=== PATIENT | female | born 1970 | race Caucasian/White ===

== ENCOUNTER → 2017-07-31 09:21 | Outpatient (CLI) | payer OTHER, SELFPAY ==
[2017-07-31 12:37] LABS: Anion Gap 10 (5-15); BUN 11 mg/dL (7-18); Calcium,Total 8.8 mg/dL (8.5-10.1); Chloride 111 mmol/L (98-107); Cholesterol 194 mg/dL (200); Creatinine, Serum 0.92 mg/dL (0.55-1.02); EST Glomerular Filtration Rate 71 mL/min (>60); Est Glom Filt Rate - Afr Amer 85 mL/min (>60); Glucose 78 mg/dL (74-106); High Density Lipoprotein 66 mg/dL; Potassium 3.7 mmol/L (3.5-5.1); Sodium Level 142 mmol/L (136-145); Triglycerides 72 mg/dL; Very Low Density Lipoprotein 14 mg/dL (5-40)
== END ==
PROVIDERS: Family Provider Family Medicine; PCP Family Medicine; Visit Provider Family Medicine
DX: Z00.00 Encounter for general adult medical examination without abnormal findings (principal)
CPT/HCPCS: 36415; 80048; 80061

== ENCOUNTER → 2017-12-25 13:34 | Outpatient (CLI) | payer OTHER, SELFPAY ==
--- NOTE | 2017-12-25 13:37 | RAD_ITS ---
STUDY: X-RAY - LEFT ANKLE REASON FOR EXAM: Female, 47 years old. Pain. TECHNIQUE: 3 view(s) of the ankle. COMPARISON: None. FINDINGS: Normal visualized distal tibia and fibula. Normal medial and lateral malleoli. Normal tibiotalar articulation and ankle mortise. Plantar spur. The visualized subtalar, talonavicular, calcaneocuboid and tarsal articulations are normal. The soft tissue structures are unremarkable. RAD/Ankle min 3 Views IMPRESSION: Plantar spur. Electronically Signed: Vinod Triana MD at 14:05 EDT Tel [phone], Service support ,
== END ==
PROVIDERS: Family Provider Family Medicine; PCP Family Medicine; Referring Provider Physician Assistant Surgical; Visit Provider Physician Assistant Surgical
DX: S96.912A Strain of unspecified muscle and tendon at ankle and foot level, left foot, initial encounter (principal); X58.XXXA Exposure to other specified factors, initial encounter; Y93.9 Activity, unspecified; Y92.9 Unspecified place or not applicable; Y99.9 Unspecified external cause status
CPT/HCPCS: 73610

== ENCOUNTER → 2018-08-06 09:17 | Outpatient (CLI) | payer OTHER, SELFPAY ==
[2018-08-06 12:55] LABS: ALB/GLOB Ratio 1.2 RATIO (0.9-2.4); AST(SGOT) 11 U/L (15-37); Alanine Aminotransfer ALT/SGPT 18 U/L (13-56); Albumin, Serum 3.7 g/dL (3.2-5.0); Alkaline Phosphatase 45 U/L (45-117); Anion Gap 9 (5-15); BUN 13 mg/dL (7-18); BUN/Creat Ratio 14.6 RATIO (10-20); Calcium,Total 8.7 mg/dL (8.5-10.1); Chloride 112 mmol/L (98-107); Cholesterol 178 mg/dL (200); Creatinine, Serum 0.89 mg/dL (0.55-1.02); EST Glomerular Filtration Rate 72 mL/min (>60); Est Glom Filt Rate - Afr Amer 88 mL/min (>60); Globulin 3.1 g/dL (2.2-4.2); Glucose 83 mg/dL (74-106); High Density Lipoprotein 69 mg/dL; Potassium 3.9 mmol/L (3.5-5.1); Protein, Total 6.8 g/dL (6.4-8.2); Sodium Level 143 mmol/L (136-145); Triglycerides 59 mg/dL; Very Low Density Lipoprotein 12 mg/dL (5-40)
== END ==
PROVIDERS: Family Provider Family Medicine; PCP Family Medicine; Visit Provider Family Medicine
DX: Z00.00 Encounter for general adult medical examination without abnormal findings (principal); G43.909 Migraine, unspecified, not intractable, without status migrainosus; I34.1 Nonrheumatic mitral (valve) prolapse
CPT/HCPCS: 36415; 80053; 80061

== ENCOUNTER 2023-06-29 17:17 | Emergency (ER) | payer OTHER, SELFPAY ==
[2023-06-29 17:20] VITALS: BP 156/62; PULSE 85; RESP 18; TEMP 35.7; O2SAT 100; BMI 35.4
[2023-06-29 19:18] VITALS: BP 140/78; PULSE 72; RESP 16; O2SAT 99
--- NOTE | 2023-06-29 19:24 | EX.ED.DYSGE1 ---
HPI History of Present Illness Chief Complaint: Nausea/Vomiting Narrative Narrative: 53-year-old female who denies significant past medical history presents with nausea and vomiting that started today. She relates history that she had a viral infection back in March, few months ago, and has been coughing ever since. She coughs on a daily basis and is nonproductive. Today, she did not really have a cough, but she became nauseated and then vomited up a small amount of blood/clots. She continued to vomit, and it was bright yellow. She became concerned more about the bright yellow emesis. She does not take any blood thinners. Only medications that she takes is flecainide for her heart, and rosuvastatin. She denies any chest pain, no shortness of breath, no real abdominal pain. No prior abdominal surgeries. She had a normal bowel movement today. [facility] Medical History Heart disease HISTORY OF PLATES IN ARM Home Medications flecainide 100 mg tablet 100 mg PO Q12H 30 days #60 tabs 12/25/17 [History Last Taken Unknown] benzonatate 100 mg capsule 100 mg PO BID PRN cough #20 caps 06/29/23 [Rx Last Taken Unknown] cetirizine 10 mg tablet (24Hour Allergy) 10 mg PO DAILY PRN allergy symptoms 06/29/23 [History Last Taken Unknown] epinephrine 0.3 mg/0.3 mL injection, auto-injector 0.3 ml IM 06/29/23 [History Last Taken Unknown] omeprazole 20 mg capsule,delayed release 20 mg PO DAILY #30 CAPSULES 06/29/23 [Rx Last Taken Unknown] rosuvastatin 5 mg tablet 5 mg PO DAILY 06/29/23 [History Last Taken Unknown] trazodone 100 mg tablet 100 mg PO QHS insomnia 06/29/23 [History Last Taken Unknown] Allergy/AdvReac Type Severity Reaction Status Date / Time neomycin Allergy Mild SWELLING/RA Verified 06/29/23 17:20 SH adhesive Allergy Other Verified 06/29/23 17:20 bee venom protein (honey bee) Allergy Swelling Verified 06/29/23 17:20 Family History Other Bladder cancer Kidney disease Lung cancer Lupus Surgical History History of thumb surgery History of tonsillectomy Social History Smoking Status: Never smoker alcohol intake: never ROS ROS ED ROS Narrative Constitutional: No fever, no chills. HEENT: No sore throat. No neck pain. No loss of vision. No rhinorrhea. Cardiovascular: No chest pain. No palpitations. No pedal edema. Respiratory: Chronic cough, no shortness of breath. Abdominal: No abdominal pain. Positive nausea and vomiting, initial vomit was blood clots, then bilious. Genitourinary: No dysuria. No hematuria. Musculoskeletal: No myalgias. No arthralgias. Neurologic: No headaches. No dizziness. No lightheadedness. Skin: No rash. No change in color. Psychiatric: No depression. No anxiety. EXAM Physical Exam Narrative Exam Narrative: Afebrile. Vital signs noted. HEENT: Normocephalic. Atraumatic. PERRL, EOMI. Neck soft and supple. No point tenderness or step off. No subconjunctival pallor. Cardiovascular: Regular rate and rhythm. No murmurs, rubs, or gallops appreciated. Respiratory: No tachypnea. Lungs clear to auscultation bilaterally. Gastrointestinal: Abdomen soft, nontender, with normoactive bowel sounds. No rebound or guarding. Negative Argueta sign. Neurological: Awake. Alert. Nonfocal, nonlateralizing. Skin: No rash. Normal color. No pallor. Musculoskeletal: No pedal edema. Full range of motion extremities. Const Vital Signs: 06/29/23 17:20 06/29/23 19:13 06/29/23 19:18 Temperature 96.3 F L Temperature Source Temporal Pulse Rate 85 72 Respiratory Rate 18 16 Respiratory Effort Normal Respiratory Depth Normal Respiratory Pattern Normal Blood Pressure 156/62 H 140/78 H Blood Pressure Mean 93 98 Pulse Ox 100 99 Oxygen Delivery Method Room Air Room Air Room Air MDM MDM MDM Narrative Medical decision making narrative: In the differential diagnosis would be Dayanna-Thompson tear from coughing, bilious vomiting from gastritis, pancreatitis, and I have low suspicion for gallbladder pathology as she has no tenderness in the right upper quadrant. Also the differential diagnosis would be bowel obstruction, but she does not have prior surgeries to the abdomen and the history and physical does not support this. Baseline laboratories will be checked. Clinically I do not feel that she is anemic requiring transfusion. I will check a CBC, CMP, and lipase, and obtain x-rays to help rule out obstruction. Given her chronic cough, this will include 1 view chest x-ray as well. I reviewed her laboratory work and she has a normal white count of 7.7, hemoglobin normal at 14.3, hematocrit 42.2, platelet count normal at 274. BUN is slightly elevated at 21 with a creatinine of 1.07. She was bolused normal saline. Glucose appropriately elevated at 79, anion gap normal at 8. Lipase is normal at 18 so I do think she has an acute pancreatitis. She had more bilious vomiting so I think that any upper GI bleeding has stopped. X-rays of the abdomen were obtained as well as 1 view chest x-ray and interpreted by myself independently. There is no evidence of obstruction. There is a nonobstructive pattern, and moderate stool noted. I reviewed the radiology report which confirms my independent interpretation. She may have more of an esophagitis or gastritis versus ulcer. She does state that she wakes up with a sour taste in her mouth and thinks that her cough may be secondary to GERD. I wrote her prescription for omeprazole. She states that Tessaltiburcio Fonseca have been working for cough as well, and requested a prescription so I wrote 1 for 20 tablets but told her that she should take care of her GERD and probably see gastroenterology as well in the event that she requires upper endoscopy. At this point in time, I have low suspicion for bleeding ulcer. I feel she can be discharged safely home with follow-up. Return instructions to the emergency department were reviewed. Disposition is discharged home in stable condition. History & Record Review Discussion w/independent historian: Patient and Family (Spouse) Additional record(s) reviewed:: Prior outpatient record (Neurology out patient, noncontributory to current chief complaint.) Lab Data Attestation: I reviewed the patient's lab results. Labs: Laboratory Results - last 24 hr 06/29/23 20:15 WBC 7.7 RBC 4.47 Hgb 14.3 Hct 42.2 MCV 94.4 MCH 32.0 MCHC 33.9 RDW Std Deviation 41.6 RDW Coeff of Rob 11.9 Plt Count 274 MPV 10.3 Immature Gran % (Auto) 0.300 Neut % (Auto) 59.1 Lymph % (Auto) 32.9 [place] % (Auto) 6.4 Eos % (Auto) 0.8 Baso % (Auto) 0.5 Absolute Neuts (auto) 4.6 Absolute Lymphs (auto) 2.53 Nucleated RBC % 0 Sodium 138 Potassium 3.8 Chloride 105 Carbon Dioxide 25.0 Anion Gap 8 BUN 21 H Creatinine 1.07 H Estim Creat Clear Calc 74.01 Est GFR (MDRD) Af Amer 70 Est GFR (MDRD) Non-Af 58 L BUN/Creatinine Ratio 19.6 Glucose 79 Calcium 9.9 Total Bilirubin 0.40 AST 16 ALT 19 Alkaline Phosphatase 65 Total Protein 7.9 Albumin 4.5 Globulin 3.4 Albumin/Globulin Ratio 1.3 Lipase 18 Radiography Diagnostic Testing: Clinical Impression(s) from Imaging Studies Acute Abdomen Series 06/29/23 20:21 IMPRESSION: Normal x-ray examination of the chest, abdomen, and pelvis. Electronically Signed: Spike Hope MD at 21:07 EDT , Discharge Plan Triage Chief Complaint: Nausea/Vomiting Other Complaint: Cough ED Provider: Steve Marquez Dx/Rx/DC Orders Clinical Impression: Cough, Gastroesophageal reflux disease, Vomiting Instructions: ED GERD (Adult), ED Vomiting (Adult) Prescriptions: New omeprazole 20 mg capsule,delayed release(DR/EC) 20 mg PO DAILY Qty: 30 0RF benzonatate 100 mg capsule 100 mg PO BID PRN (Reason: cough) Qty: 20 0RF No Action flecainide 100 mg tablet 100 mg PO Q12H 30 Days Qty: 60 Patient Comments: TAKE 1 TABLET BY MOUTH EVERY 12 HOURS cetirizine [24Hour Allergy] 10 mg tablet 10 mg PO DAILY PRN (Reason: allergy symptoms) trazodone 100 mg tablet 100 mg PO QHS epinephrine 0.3 mg/0.3 mL auto-injector 0.3 ml IM Patient Comments: PLEASE SEE ATTACHED FOR DETAILED DIRECTIONS rosuvastatin 5 mg tablet 5 mg PO DAILY Primary Care Provider: Nelsy Forman Referrals: Lizzy Cruz MD [Med Staff - Renal Dialysis Rn] - 3-5 Days if not improving Abril,DO Steven [Med Staff - Active Staff] - As soon as possible Disposition Disposition: Home, Self Care
[2023-06-29] MEDS: 0.9% Normal Saline (1000mL) 1,000 ML 1000 ML IV (20:14)
[2023-06-29] MEDS: Ondansetron 4 MG/2 ML Vial IV (20:14)
--- NOTE | 2023-06-29 20:21 | RAD_ITS ---
STUDY: X-RAY - ACUTE ABDOMINAL SERIES REASON FOR EXAM: Female, 53 years old. Pain TECHNIQUE: Single view of the chest. Supine, and erect view(s) of the abdomen were obtained. COMPARISON: None. FINDINGS: The lungs are clear and expanded. Slightly elevated right hemidiaphragm. Normal size heart. Normal mediastinum and socorro. Normal visualized pulmonary arteries. Normal visualized aortic arch and descending thoracic aorta. There is a non-specific bowel gas pattern. The soft tissue structures of the abdomen and pelvis are unremarkable. Normal visualized osseous structures. Intrauterine device within the pelvis. RAD/Acute Abdomen Inc Chest IMPRESSION: Normal x-ray examination of the chest, abdomen, and pelvis. Electronically Signed: Spike Hope MD at 21:07 EDT ,
[2023-06-29 20:24] LABS: Absolute Lymphocyte Count 2.53 X10^3/uL (0.83-4.51); Absolute Neutrophil Count 4.6 X10^3/uL (2.0-7.7); Basophil# 0.04 X10^3/uL; Basophil% 0.5 % (0-1); Eosinophil# 0.06 X10^3/uL; Eosinophils% 0.8 % (0-5); Hematocrit 42.2 % (37-47); Hemoglobin 14.3 g/dL (12.0-15.0); Lymphocyte # 2.53 X10^3/ul (0.83-4.51); Lymphocyte % 32.9 % (19-41); Mean Corp Hgb Conc 33.9 g/dL (32-36); Mean Corpuscular Volume 94.4 fL (81-99); Mean Platelet Vol. 10.3 fl (6.2-12.0); Monocyte# 0.49 X10^3/uL; Monocyte% 6.4 % (0-10); NRBC Flagged by Analyzer 0 % (0-5); Neutrophil # 4.56 X10^3/uL (2.7-7.7); Neutrophil % 59.1 % (47-70); Platelet Count 274 K/mm3 (150-450); RBC Distribution Width CV 11.9 % (11.6-14.6); RBC Distribution Width SD 41.6 fl (35.1-43.9); Red Blood Count 4.47 M/mm3 (4.2-5.4); White Blood Count 7.7 K/mm3 (4.4-11.0)
[2023-06-29 20:59] LABS: ALB/GLOB Ratio 1.3 RATIO (0.9-2.4); AST(SGOT) 16 U/L (15-37); Alanine Aminotransfer ALT/SGPT 19 U/L (13-56); Albumin, Serum 4.5 g/dL (3.2-5.0); Alkaline Phosphatase 65 U/L (45-117); Anion Gap 8 (5-15); BUN 21 mg/dL (7-18); BUN/Creat Ratio 19.6 RATIO (10-20); Calcium,Total 9.9 mg/dL (8.5-10.1); Chloride 105 mmol/L (98-107); Creatinine, Serum 1.07 mg/dL (0.55-1.02); EST Glomerular Filtration Rate 58 mL/min (>60); Est Glom Filt Rate - Afr Amer 70 mL/min (>60); Estimated Creatinine Clearance 74.01 ml/min; Globulin 3.4 g/dL (2.2-4.2); Glucose 79 mg/dL (74-106); Lipase 18 U/L (13-75); Potassium 3.8 mmol/L (3.5-5.1); Protein, Total 7.9 g/dL (6.4-8.2); Sodium Level 138 mmol/L (136-145)
[2023-06-29 21:00] VITALS: BP 127/89; PULSE 78; RESP 16; O2SAT 99
[2023-06-29 21:49] VITALS: BP 129/84; PULSE 75; RESP 16; TEMP 36.9; O2SAT 99
== END 2023-06-29 21:50 | disposition home or self-care (01) ==
PROVIDERS: Emergency Provider Emergency Medicine; PCP Internal Medicine; Visit Provider Emergency Medicine
DX: R11.2 Nausea with vomiting, unspecified (principal); K21.9 Gastro-esophageal reflux disease without esophagitis; R05.3 Chronic cough
CPT/HCPCS: 74022; 80053; 83690; 85025; 96361; 96374; 99283; J7030; A4216; J2405

== ENCOUNTER 2024-06-10 05:16 | Day surgery (SDC) | payer OTHER, SELFPAY ==
--- NOTE | 2024-06-05 14:14 | PAT.ANESEVAL ---
Pre-Assessment Diagnosis/Proposed Procedure Planned Operative Procedure(s): EGD, COLONOSCOPY Anesthesia History Anesthesia History - sheep sticker: Anesthesia History - sheep sticker Hx Hospitalization No 06/05/24 08:23 Any Problems With Anesthesia No 06/05/24 08:23 Cholinesterase deficiency No 06/05/24 08:23 You/Your Family Experience No 06/05/24 08:23 fever (hyperthermia) with Relationship Recent Exposure to Contagious Disease Does patient have nerve No 06/05/24 08:23 stimulator Patient instructed to have device shut off --Does patient have Pacemaker or ICD? When Was Last Pacemaker Check QUESTION #4 FULL TEXT: You/Your Family Experience fever (hyperthermia) with Anesthesia Last Oral Intake Last Oral intake: Last Oral Intake NPO since Meds taken in AM with sips of water? Meds patient instructed to take am of surgery PONV PONV - sheep sticker: PONV - sheep sticker Female Yes 06/05/24 08:23 HX of Motion Sickness No 06/05/24 08:23 HX of N/V After Surgery No 06/05/24 08:23 Non-Smoker Yes 06/05/24 08:23 Duration of Surgery greater No 06/05/24 08:23 than 60 minutes Number of Risk Factors 2 06/05/24 08:23 PONV Score Moderate Risk 06/05/24 08:23 Height & Weight Height & Weight: Anesthesia: Height & Weight Height 5 ft 6 in 03/26/24 16:05 Respiratory Assessment Respiratory Assessment - sheep sticker: Respiratory Tract Infection Hx - sheep sticker Hx Respiratory Tract Infection No 06/05/24 08:23 STOP Sleep Apnea STOP Sleep Apnea - sheep sticker: STOP Sleep Apnea - sheep sticker Hx Hypertension No 06/05/24 08:23 Hx Sleep Apnea No 06/05/24 08:23 CPAP BIPAP Do you snore loudly (louder No 06/05/24 08:23 than talking or can be heard Do you often feel tired/ No 06/05/24 08:23 fatigued/ sleepy during daytime? Has anyone observed you stop No 06/05/24 08:23 breathing during sleep? STOP Results Negative 06/05/24 08:23 QUESTION #5 FULL TEXT : Do you snore loudly (louder than talking or can be heard through closed doors)? Tobacco Use History Tobacco Use History - sheep sticker: Tobacco Use History - sheep sticker Tobacco Use Smoking Status Never smoker 06/05/24 08:23 Hx Tobacco Use No 06/05/24 08:23 Years Smoking Packs Smoked per Day Smoking Cessation Date was within the last 15 years Hx Smoking Cessation Date Hx Smoking Cessation Counseling Hematologic Medial History Hematologic Hx - sheep sticker: Hematologic Medical Hx - paying teller Hx of Blood Transfusion No 06/05/24 08:23 Hx of Transfusion in last 3 No 06/05/24 08:23 Months Date of Last Transfusion (if within last 3 months) Ever experience any problems No 06/05/24 08:23 with transfusion(s)? Specify any problems Hx of Preganancy in last 3 No 06/05/24 08:23 Months Nurse Filling Out Transfusion [facility] 06/05/24 08:23 & Questions: Date: 06/05/24 06/05/24 08:23 Time: 08:06/05/24 08:23 Patient unable to answer at this time (ie. confused, unrespo /Reproduction History /Reproductive History - sheep sticker: /Reproductive Hx- sheep sticker Hx Now No 06/05/24 08:23 Gestational Age (in weeks): EDC: Hx Hx Para Hx Section SAB No 06/05/24 08:23 [facility]LY [facility] Medical History (Updated 06/05/24 @ 08:32 by Sonja Zafar) Postmenopausal Wears glasses High cholesterol Difficulty swallowing Gastric reflux Non-smoker Chronic cough History of echocardiogram Cardiology follow-up encounter Hives Hypercholesterolemia Mitral valve prolapse Aortic regurgitation Headache, migraine UTI (urinary tract infection) Bone fracture Atrial fibrillation Seasonal allergies HISTORY OF PLATES IN ARM Heart disease Home Medications ?Medication ?Instructions ?Recorded ?Last Taken ?Type flecainide 100 mg tablet 100 mg PO Q12H 30 days #60 tabs 12/25/17 Unknown History epinephrine 0.3 mg/0.3 mL 0.3 ml IM .once 06/29/23 Unknown History injection, auto-injector rosuvastatin 5 mg tablet 5 mg PO DAILY 06/29/23 Unknown History trazodone 100 mg tablet 100 mg PO QHS insomnia 06/29/23 Unknown History cetirizine 10 mg tablet (24Hour 10 mg PO DAILY allergy symptoms 04/08/24 Unknown History Allergy) omeprazole 40 mg capsule,delayed 40 mg PO BID 04/08/24 Unknown History release metoprolol tartrate 25 mg tablet 12.5 mg PO QHS 06/05/24 Unknown History Allergy/AdvReac Type Severity Reaction Status Date / Time neomycin Allergy Mild SWELLING/RA Verified 06/05/24 08:19 SH adhesive Allergy Other Verified 06/05/24 08:19 bee venom protein (honey bee) Allergy Swelling Verified 06/05/24 08:19 Family History (Updated 04/08/24 @ 15:42 by Mitzy Perry) Sister Thyroid disorder Mother Lupus nephritis Kidney disease Father Lung cancer Other Bladder cancer Lupus Surgical History (Updated 06/05/24 @ 08:28 by Sonja Zafar) History of surgery on arm History of thumb surgery History of tonsillectomy Social History (Updated 04/08/24 @ 15:33 by Mitzy Perry) Smoking Status: Never smoker alcohol intake: current alcohol intake frequency: holidays/special occasions only substance use type: does not use what type of physical activity do you participate in: aerobics frequency: 1-2 times per week Audit: Pertinent Findings Pertinent Findings EKG Perinent findings: May 02, 2024. Sinus rhythm. Intraventricular conduction delay. Echo (EF%) pertinent findings: May 12, 2024. Mild aortic insufficiency. No aortic stenosis. Ejection fraction 55 to 60%. Right ventricular systolic pressure is 36 mmHg. Consult pertinent findings: May 02, 2024. 1. Aortic insufficiency?check echo. (See above) 2. Palpitations-check EKG. (Above) Recommendation Anesthesia Recommendation Anesthesia recommendation: OPTIMIZED for anesthesia
[2024-06-10] VITALS (8 sets, daily range): BP systolic 98–137; BP diastolic 63–67; PULSE 77–85; RESP 14–18; TEMP 36.6–37.4; O2SAT 88–98; BMI 39.0
--- NOTE | 2024-06-10 06:16 | PCM.PRE.AN2 ---
ASA Classification* ASA Classification ASA Classification: 2 Assessment & Plan Anesthesia* Anesthesia Assessment Anesthesia Assessment: Discussed sedation and/or anesthesia options, risks, benefits, and alternatives with patient/parents/legal guardian/POA. Questions invited. The patient/parents/legal guardian/POA seems to understand and agrees to proceed with anesthesia plan. Reviewed the physical assessment, medical history, allergy history and patient home medications list prior to surgery/procedure/anesthetic and documented any changes. Performed airway and anesthesia risk assessments. Anesthesia Type Anesthesia Type: MAC History Source History Obtained from:: Patient and Chart Anesthesia Focused Assessment* Temperature: 99.4 F Pulse Rate: 81 Blood Pressure: 137/65 Respiratory Rate: 18 Pulse Ox: 98 Oxygen Delivery Method: Room Air Airway Assessment Mouth opens: >3 cm Mallampati Score: II Teeth Condition: Caps/Crowns (Patient has a couple of caps left upper molars. They are tight.) Neck Range of motion (ROM): Full ROM Focused Labs Anesthesia Preop lab: CBC WBC 7.7 K/mm3 (4.4-11.0) 06/29/23 20:15 06/29/23 RBC 4.47 M/mm3 (4.2-5.4) 06/29/23 20:15 06/29/23 Hgb 14.3 g/dL (12.0-15.0) 06/29/23 20:15 06/29/23 Hct 42.2 % (37-47) 06/29/23 20:15 06/29/23 Plt Count 274 K/mm3 (150-450) 06/29/23 20:15 06/29/23 CHEMISTRY Potassium 3.8 mmol/L (3.5-5.1) 06/29/23 20:15 06/29/23 Sodium 138 mmol/L (136-145) 06/29/23 20:15 06/29/23 Magnesium 1.9 mg/dL (1.8-2.4) 11/06/12 11:09 11/06/12 BUN 21 mg/dL (7-18) H 06/29/23 20:15 06/29/23 Creatinine 1.07 mg/dL (0.55-1.02) H 06/29/23 20:15 06/29/23 Glucose 79 mg/dL (74-106) 06/29/23 20:15 06/29/23 TSH 1.78 uIU/mL (0.358-3.74) 06/13/16 11:37 06/13/16 COAG Pre-Assessment Diagnosis/Proposed Procedure Planned Operative Procedure(s): EGD, COLONOSCOPY Anesthesia History Anesthesia History - author agent: Anesthesia History - author agent Hx Hospitalization No 06/05/24 08:23 Any Problems With Anesthesia No 06/05/24 08:23 Cholinesterase deficiency No 06/05/24 08:23 You/Your Family Experience No 06/05/24 08:23 fever (hyperthermia) with Relationship Recent Exposure to Contagious No 06/10/24 05:58 Disease Does patient have nerve No 06/05/24 08:23 stimulator Patient instructed to have device shut off --Does patient have Pacemaker No 06/10/24 05:58 or ICD? When Was Last Pacemaker Check QUESTION #4 FULL TEXT: You/Your Family Experience fever (hyperthermia) with Anesthesia Last Oral Intake Last Oral intake: Last Oral Intake NPO since 23:00 06/10/24 05:58 Meds taken in AM with sips of No 06/10/24 05:58 water? Meds patient instructed to take am of surgery PONV PONV - author agent: PONV - author agent Female Yes 06/05/24 08:23 HX of Motion Sickness No 06/05/24 08:23 HX of N/V After Surgery No 06/05/24 08:23 Non-Smoker Yes 06/05/24 08:23 Duration of Surgery greater No 06/05/24 08:23 than 60 minutes Number of Risk Factors 2 06/05/24 08:23 PONV Score Moderate Risk 06/05/24 08:23 Height & Weight Height & Weight: Anesthesia: Height & Weight Height 5 ft 6 in 06/10/24 05:58 Weight: 109.7 kg 06/10/24 05:58 Body Mass Index (BMI) 39.0 06/10/24 05:58 Respiratory Assessment Respiratory Assessment - author agent: Respiratory Tract Infection Hx - author agent Hx Respiratory Tract Infection No 06/05/24 08:23 Any additional information?: Yes Hx Respiratory Tract Infection: Yes (Patient has a chronic cough.) STOP Sleep Apnea STOP Sleep Apnea - author agent: STOP Sleep Apnea - author agent Hx Hypertension No 06/05/24 08:23 Hx Sleep Apnea No 06/05/24 08:23 CPAP BIPAP Do you snore loudly (louder No 06/05/24 08:23 than talking or can be heard Do you often feel tired/ No 06/05/24 08:23 fatigued/ sleepy during daytime? Has anyone observed you stop No 06/05/24 08:23 breathing during sleep? STOP Results Negative 06/05/24 08:23 QUESTION #5 FULL TEXT : Do you snore loudly (louder than talking or can be heard through closed doors)? Tobacco Use History Tobacco Use History - author agent: Tobacco Use History - author agent Tobacco Use Smoking Status Never smoker 06/05/24 08:23 Hx Tobacco Use No 06/05/24 08:23 Years Smoking Packs Smoked per Day Smoking Cessation Date was within the last 15 years Hx Smoking Cessation Date Hx Smoking Cessation Counseling Hematologic Medial History Hematologic Hx - author agent: Hematologic Medical Hx - compensation administrator Hx of Blood Transfusion No 06/05/24 08:23 Hx of Transfusion in last 3 No 06/05/24 08:23 Months Date of Last Transfusion (if within last 3 months) Ever experience any problems No 06/05/24 08:23 with transfusion(s)? Specify any problems Hx of Preganancy in last 3 No 06/05/24 08:23 Months Nurse Filling Out [facility] [facility] 06/05/24 08:23 & Questions: Date: 06/05/24 06/05/24 08:23 Time: 08:28 06/05/24 08:23 Patient unable to answer at this time (ie. confused, unrespo /Reproduction History /Reproductive History - author agent: /Reproductive Hx- author agent Hx Now No 06/05/24 08:23 Gestational Age (in weeks): EDC: Hx Hx Para Hx Section SAB No 06/05/24 08:23 PFSH Medical History Postmenopausal Wears glasses High cholesterol Difficulty swallowing Gastric reflux Non-smoker Chronic cough History of echocardiogram Cardiology follow-up encounter Hives Hypercholesterolemia Mitral valve prolapse Aortic regurgitation Headache, migraine UTI (urinary tract infection) Bone fracture Atrial fibrillation Seasonal allergies HISTORY OF PLATES IN ARM Heart disease Home Medications ?Medication ?Instructions ?Recorded ?Last Taken ?Type flecainide 100 mg tablet 100 mg PO Q12H 30 days #60 tabs 12/25/17 Unknown History epinephrine 0.3 mg/0.3 mL 0.3 ml IM .once 06/29/23 Unknown History injection, auto-injector rosuvastatin 5 mg tablet 5 mg PO DAILY 06/29/23 Unknown History trazodone 100 mg tablet 100 mg PO QHS insomnia 06/29/23 Unknown History cetirizine 10 mg tablet (24Hour 10 mg PO DAILY allergy symptoms 04/08/24 Unknown History Allergy) omeprazole 40 mg capsule,delayed 40 mg PO BID 04/08/24 Unknown History release metoprolol tartrate 25 mg tablet 12.5 mg PO QHS 06/05/24 06/09/24 23:00 History Allergy/AdvReac Type Severity Reaction Status Date / Time neomycin Allergy Mild SWELLING/RA Verified 06/10/24 05:57 SH adhesive Allergy Other Verified 06/10/24 05:57 bee venom protein (honey bee) Allergy Swelling Verified 06/10/24 05:57 Family History Sister Thyroid disorder Mother Lupus nephritis Kidney disease Father Lung cancer Other Bladder cancer Lupus Surgical History History of surgery on arm History of thumb surgery History of tonsillectomy Social History Smoking Status: Never smoker alcohol intake: current alcohol intake frequency: holidays/special occasions only substance use type: does not use what type of physical activity do you participate in: aerobics frequency: 1-2 times per week Review of Systems (Anesthesia) ROS Narrative System reviewed and no additional complaints, except as documented.
--- NOTE | 2024-06-10 06:30 | COLBX_PTH ---
PATIENT: STAN SINGER LOC: EN U#:[id number] AGE/SX: 53/F ROOM: RE06/10/[address]: Dr. Steven Samuels DO : 1970 BED: DIS: 06/10/2024 SPEC #: [id number] RECD: 06/10/24 09:34 STATUS: KRYSTYNA SNEED #: [id number] PADMINI: 06/10/24 06:[address]: Steven Samuels DEPT: SURGICAL PATHOLOGY RECD BY: Jaclyn Durbin ENTERED: 06/10/24 12:17 SP TYPE: COLON BX OTHR DR: Dr. Nelsy Forman MD Tissues: A - Esophagus, NOS B - Gastric mucous membrane C - Duodenum, NOS D - Sigmoid colon biopsy Procedures: Immunohistochemical Stains Surgery Specimen Level IV HEADER OPERATION: Colonoscopy, EGD biopsy, dilation PRE-OP DIAGNOSIS: Gastroesophageal reflux disease, cough, nausea/vomiting TISSUE SUBMITTED: A- Distal esophagus biopsy, B- Gastric body biopsy, C- Duodenum biopsy, D- Sigmoid biopsy MICROSCOPIC DIAGNOSIS A. Distal Esophagus, Gastroesophageal Reflux, Biopsy: * Benign squamous mucosa. * Columnar mucosa negative for goblet cell metaplasia. B. Stomach, Body, Biopsy: * Oxyntic mucosa with slight chronic inflammation. * Negative for Helicobacter-like organisms (H&E). C. Small Bowel, Duodenum, Biopsy: * Reactive changes. * Negative for increased intraepithelial lymphocytes. D. Colon, Sigmoid, Biopsy: * No specific pathologic change. MICROSCOPIC DESCRIPTION Slides are reviewed. GROSS DESCRIPTION A. Received in formalin in a container labeled with the patient's name, date of , and distal esophagus biopsy are 3 white-pink fragments of mucosal tissue ranging from 0.2 x 0.1 x 0.1 cm to 0.3 x 0.3 x 0.2 cm. Submitted entirely in A1. B. Received in formalin in a container labeled with the patient's name, date of , and gastric body biopsy are multiple durham-pink fragments of mucosal tissue measuring 0.6 x 0.5 x 0.3 cm in aggregate. Submitted entirely in B1. C. Received in formalin in a container labeled with the patient's name, date of , and duodenum biopsy are multiple durham-pink fragments of mucosal tissue measuring 0.8 x 0.6 x 0.3 cm in aggregate. Submitted entirely in C1. D. Received in formalin in a container labeled with the patient's name, date of , and sigmoid biopsy are 2 durham-pink fragments of mucosal tissue measuring 0.5 x 0.4 x 0.3 cm and 0.5 x 0.3 x 0.2 cm. Submitted entirely in D1. [facility] 06-10-2024 CPT:39711k4,53584
--- NOTE | 2024-06-10 06:37 | HP.PCM_ITS ---
HPI - General General Date of Admission: 06/10/24 Date of Service: 06/10/24 Chief Complaint: screening colon and GERD HPI Narrative STAN SINGER, is a 53 F who presentsSUWALKER SINGER, is a 53 F who presents to the office today for establishment with [facility]. [facility] ED 06.29.23 with n/v with small amount of blood/clots. Emesis was bright yellow which concerned her. Lipase CBC and CMP without pertinent abnormalities. Discharged with omeprazole and recommendation for GI appointment. Acute abd series 06.29.23; Normal x-ray examination of the chest, abdomen, and pelvis. Colonoscopy; none EGD; none OV 04.08.24; For a year now, pt has been struggling with a chronic cough. She will cough so much that she will eventually vomit which relieves her coughing. She feels her symptoms are related to her esophagus and not her trachea. It feel s like a dry spot in her throat that never goes away until she vomits. Her PCP put on Zyrtec and Pepcid for allergies which has helped some. She was also started on omeprazole and titrated up to 40 mg BID. This has been helpful for all of her symptoms but is still not feeling her best. She has difficulties with swallowing liquids and solids. She has heartburn but it is controlled with the PPI. She has never had a colonoscopy or an EGD before. She does still have her gallbladder and notes having some issues during . [facility] Medical History (Updated 06/10/24 @ 06:[address] Harris Friend, DO) Postmenopausal Wears glasses High cholesterol Difficulty swallowing Gastric reflux Non-smoker Chronic cough History of echocardiogram Cardiology follow-up encounter Hives Hypercholesterolemia Mitral valve prolapse Aortic regurgitation Headache, migraine UTI (urinary tract infection) Bone fracture Atrial fibrillation Seasonal allergies HISTORY OF PLATES IN ARM Heart disease Home Medications ?Medication ?Instructions ?Recorded ?Last Taken ?Type flecainide 100 mg tablet 100 mg PO Q12H 30 days #60 t abs 12/25/17 Unknown History epinephrine 0.3 mg/0.3 mL 0.3 ml IM .once 06/29/23 Unk nown History injection, auto-injector rosuvastatin 5 mg tablet 5 mg PO DAILY 06/29/23 Unkno wn History trazodone 100 mg tablet 100 mg PO QHS insomnia 06/28 Unknown History cetirizine 10 mg tablet (24Hour 10 mg PO DAILY allergy symptoms 04/08/24 Unknown History Allergy) omeprazole 40 mg capsule,delayed 40 mg PO BID 04/08/24 Unknown History release metoprolol tartrate 25 mg tablet 12.5 mg PO QHS 06/09/24 23:00 History Allergy/AdvReac Type Severity Reaction Status Date / Time neomycin Allergy Mild SWELLING/RA Verified 06/10/24 05:57 SH adhesive Allergy Other Verified 06/10/24 05:57 bee venom protein (honey bee) Allergy Swelling Verified 06/10/24 05:57 Family History Sister Thyroid disorder Mother Lupus nephritis Kidney disease Father Lung cancer Other Bladder cancer Lupus Surgical History History of surgery on arm History of thumb surgery History of tonsillectomy Social History Smoking Status: Never smoker alcohol intake: current alcohol intake frequency: holidays/special occasions only substance use type: does not use what type of physical activity do you participate in: aerobics frequency: 1-2 times per week ROS Constitutional Constitutional: Denies fatigue, fever(s), poor appetite, weight gain or weight loss Gastrointestinal Gastrointestinal: Denies belching, bloating, change in bowel habits, change in stool character, chewing difficulty, coffee ground emesis, constipation, cramping, diarrhea, dyspepsia, dysphagia, early satiety, excessive flatus, fecal incontinence, heartburn, hematemesis, hematochezia, hemorrhoids, loose stools, melena, nausea, odynophagia, rectal bleeding, tenesmus, vomiting or weight changes Vital Signs Vital Signs Vital Signs: 06/10/24 05:58 06/10/24 05:58 06/10/24 06:21 Temperature 99.4 F H 99.4 F H Temperature Source Temporal Pulse Rate 81 81 Respiratory Rate 18 18 Respiratory Pattern Normal Blood Pressure 137/65 H 137/65 H Blood Pressure Mean 89 Blood Pressure Source Monitor Blood Pressure Position Sitting Blood Pressure Location Left Arm Pulse Ox 98 98 Oxygen Delivery Method Room Air Room Air Weight Weight: 241 lb 13.553 oz Body Mass Index (BMI) 39.0 Physical Exam Const alert, oriented x3, no apparent distress and healthy appearing General Appearance: cooperative GI normal to inspection, nondistended, normoactive bowel sounds, soft to palpation, non-tender and non-distended Percussion: normal to percussion Rectal Exam: deferred Assessment & Plan Assessment/Plan (1) Nausea & vomiting: (2) Screening for colon cancer: (3) Difficulty swallowing: PLAN: Assessment and Plan Assessment and Plan (1) Gastroesophageal reflux disease: Plan: This is a 53 yo female here today for evaluation of severe cough leading to nausea and vomiting. She does have heartburn but this has been controlled with PPI therapy. SHe endorses difficulty with swallowing both liquids and solids. She will undergo EGD to asses her upper GI tract for inflammation, stricture, or EOE. SHe will continue omeprazole 40 mg BID. At the same time she will have a screening colonoscopy as she has not had one yet. SHe denies any lower GI symptoms. -EGD -Colonoscopy -Continue omeprazole 40 mg BID (2) Cough: Status: Inactive (3) Nausea & vomiting: Status: Acute
--- NOTE | 2024-06-10 07:19 | OP.CCLET_ITS ---
06/10/2024 Nelsy Forman [address] [place] [address] Re : Upper GI endoscopy procedure for Imelda Mcmahan Dear Dr. Forman This procedure was performed on Monday, June 10, 2024. My impressions and recommendations are as follows: Impressions : - LA Grade A reflux esophagitis with no bleeding. Biopsied. - Moderate Schatzki ring. Dilated. - Hiatal hernia. - Erythematous mucosa in the gastric body. Biopsied. - Erythematous duodenopathy. Biopsied. Recommendations : - Discharge patient to home. - Resume previous diet. - Continue present medications. - Await pathology results. My findings are described in the full procedure note, which is enclosed. If I can be of further assistance, please feel free to contact me at . Sincerely, Steven Samuels, 06/10/2024 7:18:25 AM This report has been signed electronically.
--- NOTE | 2024-06-10 07:19 | OP.EGD_ITS ---
Patient Name: Imelda Mcmahan Procedure Date: 06/10/2024 6:23 AM Date of : 1970 Age: 53 Procedure: Upper GI endoscopy Indications: Dysphagia, Heartburn Providers: Steven Samuels DO Medicines: Monitored Anesthesia Care Patient Profile: This is a 53 year old female. Refer to note in patient chart for documentation of history and physical. Patient has symptoms of chronic epigastric abdominal pain, dysphagia with solids, acute dyspepsia and chronic heartburn. Complications: No immediate complications. Procedure: Pre-Anesthesia Assessment: - Prior to the procedure, a History and Physical was performed, and patient medications and allergies were reviewed. The patient is competent. The risks and benefits of the procedure and the sedation options and risks were discussed with the patient. All questions were answered and informed consent was obtained. Patient identification and proposed procedure were verified by the physician in the pre-procedure area. Mental Status Examination: alert and oriented. Airway Examination: normal oropharyngeal airway and neck mobility. Respiratory Examination: clear to auscultation. CV Examination: normal. ASA Grade Assessment: II - A patient with mild systemic disease. After reviewing the risks and benefits, the patient was deemed in satisfactory condition to undergo the procedure. The anesthesia plan was to use monitored anesthesia care (MAC). Immediately prior to administration of medications, the patient was re-assessed for adequacy to receive sedatives. The heart rate, respiratory rate, oxygen saturations, blood pressure, adequacy of pulmonary ventilation, and response to care were monitored throughout the procedure. The physical status of the patient was re-assessed after the procedure. After obtaining informed consent, the endoscope was passed under direct vision. Throughout the procedure, the patient's blood pressure, pulse, and oxygen saturations were monitored continuously. The Colonoscope was introduced through the mouth, and advanced to the third part of the duodenum. Small bowel enteroscopy was deemed necessary. The upper GI endoscopy was accomplished with ease. The patient tolerated the procedure well. Scope In: 6:48:49 AM Scope Out: 6:57:41 AM Total Procedure Duration Time 0 hours 8 minutes 52 seconds Findings: LA Grade A (one or more mucosal breaks less than 5 mm, not extending between tops of 2 mucosal folds) esophagitis with no bleeding was found 38 to 40 cm from the incisors. Biopsies were taken with a cold forceps for histology. Verification of patient identification for the specimen was done. Estimated blood loss was minimal. A moderate Schatzki ring was found at the gastroesophageal junction. A guidewire was placed and the scope was withdrawn. Dilation was performed with a Savary dilator with no resistance at 54 Fr. The dilation site was examined and showed mild improvement in luminal narrowing. Estimated blood loss was minimal. A hiatal hernia was present. Patchy mildly erythematous mucosa without bleeding was found in the gastric body. Biopsies were taken with a cold forceps for histology. Verification of patient identification for the specimen was done. Biopsies were taken with a cold forceps for Helicobacter pylori testing. Verification of patient identification for the specimen was done. Estimated blood loss was minimal. Patchy mildly erythematous mucosa without active bleeding and with no stigmata of bleeding was found in the duodenal bulb, in the first portion of the duodenum and in the second portion of the duodenum. Biopsies were taken with a cold forceps for histology. Verification of patient identification for the specimen was done. Estimated blood loss was minimal. Impression: - LA Grade A reflux esophagitis with no bleeding. Biopsied. - Moderate Schatzki ring. Dilated. - Hiatal hernia. - Erythematous mucosa in the gastric body. Biopsied. - Erythematous duodenopathy. Biopsied. Recommendation: - Discharge patient to home. - Resume previous diet. - Continue present medications. - Await pathology results. Procedure Code(s): --- Professional --- 13356, Esophagogastroduodenoscopy, flexible, transoral; with insertion of guide wire followed by passage of dilator(s) through esophagus over guide wire 63253, 59,51, Small intestinal endoscopy, enteroscopy beyond second portion of duodenum, not including ileum; with biopsy, single or multiple CPT copyright 2021 [employer]. All rights reserved. The codes documented in this report are preliminary and upon freight forwarder review may be revised to meet current compliance requirements. Steven Samuels DO 06/10/2024 7:18:25 AM This report has been signed electronically. Number of Addenda: 0 Note Initiated On: 06/10/2024 6:23 AM
--- NOTE | 2024-06-10 07:21 | OP.CCLET_ITS ---
06/10/2024 Nelsy Forman [address] [place] [address] Re : Colonoscopy procedure for Imelda Mcmahan Dear Dr. Forman This procedure was performed on Monday, June 10, 2024. My impressions and recommendations are as follows: Impressions : - Diverticulosis in the recto-sigmoid colon and in the sigmoid colon. - Patchy mild inflammation was found in the recto-sigmoid colon, in the sigmoid colon and in the descending colon secondary to colitis. Biopsied. - The examined portion of the ileum was normal. - The examination was otherwise normal on direct and retroflexion views. Recommendations : - Discharge patient to home. - Resume previous diet. - Continue present medications. - Await pathology results. - Repeat colonoscopy in 10 years for screening purposes. My findings are described in the full procedure note, which is enclosed. If I can be of further assistance, please feel free to contact me at . Sincerely, Steven Samuels, 06/10/2024 7:21:00 AM This report has been signed electronically.
--- NOTE | 2024-06-10 07:21 | OP.COLON_ITS ---
Patient Name: Imelda Mcmahan Procedure Date: 06/10/2024 6:57 AM Date of : 1970 Age: 53 Procedure: Colonoscopy Indications: Screening for colorectal malignant neoplasm, This is the patient's first colonoscopy Providers: Steven Samuels DO Medicines: Monitored Anesthesia Care Patient Profile: This is a 53 year old female. Refer to note in patient chart for documentation of history and physical. Patient has symptoms of chronic epigastric abdominal pain, dysphagia with solids, acute dyspepsia and chronic heartburn. Last Colonoscopy: none. The patient's first colonoscopy is today. Complications: No immediate complications. Procedure: Pre-Anesthesia Assessment: - Prior to the procedure, a History and Physical was performed, and patient medications and allergies were reviewed. The patient is competent. The risks and benefits of the procedure and the sedation options and risks were discussed with the patient. All questions were answered and informed consent was obtained. Patient identification and proposed procedure were verified by the physician in the pre-procedure area. Mental Status Examination: alert and oriented. Airway Examination: normal oropharyngeal airway and neck mobility. Respiratory Examination: clear to auscultation. CV Examination: normal. ASA Grade Assessment: II - A patient with mild systemic disease. After reviewing the risks and benefits, the patient was deemed in satisfactory condition to undergo the procedure. The anesthesia plan was to use monitored anesthesia care (MAC). Immediately prior to administration of medications, the patient was re-assessed for adequacy to receive sedatives. The heart rate, respiratory rate, oxygen saturations, blood pressure, adequacy of pulmonary ventilation, and response to care were monitored throughout the procedure. The physical status of the patient was re-assessed after the procedure. After I obtained informed consent, the scope was passed under direct vision. Throughout the procedure, the patient's blood pressure, pulse, and oxygen saturations were monitored continuously. The Colonoscope was introduced through the anus and advanced to the terminal ileum. The colonoscopy was performed without difficulty. The patient tolerated the procedure well. The quality of the bowel preparation was adequate. The terminal ileum, ileocecal valve, appendiceal orifice, and rectum were photographed. Scope In: 6:59:17 AM Scope Withdrawal Time 0 hours 6 minutes 42 seconds Scope Out: 7:10:13 AM Total Procedure Duration Time 0 hours 10 minutes 56 seconds Findings: The perianal and digital rectal examinations were normal. A few small-mouthed diverticula were found in the recto-sigmoid colon and sigmoid colon. Patchy mild inflammation characterized by erythema was found in the recto-sigmoid colon, in the sigmoid colon and in the descending colon. Biopsies were taken with a cold forceps for histology. Verification of patient identification for the specimen was done. Estimated blood loss was minimal. The terminal ileum appeared normal. The exam was otherwise without abnormality on direct and retroflexion views. Impression: - Diverticulosis in the recto-sigmoid colon and in the sigmoid colon. - Patchy mild inflammation was found in the recto-sigmoid colon, in the sigmoid colon and in the descending colon secondary to colitis. Biopsied. - The examined portion of the ileum was normal. - The examination was otherwise normal on direct and retroflexion views. Recommendation: - Discharge patient to home. - Resume previous diet. - Continue present medications. - Await pathology results. - Repeat colonoscopy in 10 years for screening purposes. Procedure Code(s): --- Professional --- 13196, Colonoscopy, flexible; with biopsy, single or multiple CPT copyright 2021 [employer]. All rights reserved. The codes documented in this report are preliminary and upon inspector final assembly conveyor line review may be revised to meet current compliance requirements. Steven Samuels DO 06/10/2024 7:21:00 AM This report has been signed electronically. Number of Addenda: 0 Note Initiated On: 06/10/2024 6:57 AM
--- NOTE | 2024-06-10 07:23 | PCM.POST.ANE ---
Anesthesia: Postop Eval I Current Vital Signs Temperature: 98.2 F Pulse Rate: 77 Blood Pressure: 104/63 Respiratory Rate: 18 Pulse Ox: 92 Oxygen Delivery Method: Room Air Assessment Airway patent: Yes Spontaneous unlabored respirations: Yes Mental status: Awake nausea: No Vomiting: No Anesthesia Complication: No Fluid Hydration Crystalloid volume administer (ml): 75 Total IV fluid infused: 75 Progress Note Anesthesia document: Postop Eval 1 completed: Yes
--- NOTE | 2024-06-10 11:08 | PCM.POSTANE2 ---
Anesthesia Postop Eval I Sum Postop Eval Completion status Anesthesia document: Postop Eval 1 completed: Yes Anesthesia Postop Eval I Summary Anesthesia Postop Eval I Summary: Anesthesia Postop Eval I: Assessment Summary Airway patent Yes 06/10/24 07:24 [email or web address] Spontaneous unlabored Yes 06/10/24 07:24 [email or web address] respirations Mental status Awake 06/10/24 07:24 [email or web address] nausea No 06/10/24 07:24 [email or web address] Vomiting No 06/10/24 07:24 [email or web address] Anesthesia Postop Eval I: Fluid Summary Crystalloid volume administer 75 06/10/24 07:24 [email or web address] (ml) Colloids volume administered ( ml) Blood Product volume administered (ml) Total IV fluid infused 75 06/10/24 07:24 [email or web address] Anesthesia Postop Eval I: Summary Notes Anesthesia Complication No 06/10/24 07:24 [email or web address] Anesthesia Complication Comment: Post-operative progress note Anesthesia: Postop Eval II Evaluation Mental status: Awake and Calm Pain Level: 0 nausea: No Vomiting: No Complications Anesthesia Complication: No
== END 2024-06-10 08:04 | disposition home or self-care (01) ==
LOC: EN 05:17 → AC 05:18
PROVIDERS: PCP Internal Medicine; Referring Provider Internal Medicine; Visit Provider Internal Medicine Gastroenterology
PROC: 0DJD8ZZ Inspection of Lower Intestinal Tract, Via Natural or Artificial Opening Endoscopic (ICD-10-PCS; CPT 45378; principal; 2024-06-10 06:25)
DX: Z12.11 Encounter for screening for malignant neoplasm of colon (principal); K52.9 Noninfective gastroenteritis and colitis, unspecified; K57.30 Diverticulosis of large intestine without perforation or abscess without bleeding; K22.2 Esophageal obstruction; K44.9 Diaphragmatic hernia without obstruction or gangrene; K21.00 Gastro-esophageal reflux disease with esophagitis, without bleeding; K31.89 Other diseases of stomach and duodenum; E78.00 Pure hypercholesterolemia, unspecified; Z79.899 Other long term (current) drug therapy
CPT/HCPCS: 45380; 43248; 88305; 88342; A4216; C1769; J2405

== ENCOUNTER → 2024-08-07 | Outpatient (CLI) | payer OTHER, SELFPAY ==
[2024-08-09 14:08] LABS: Anti-Smooth Muscle ABS 6 Units (0-19)
[2024-08-11 15:08] LABS: Anti-Centromere B Ab <0.2 AI (0.0-0.9); Anti-Chromatin <0.2 AI (0.0-0.9); Anti-Jo <0.2 AI (0.0-0.9); Anti-Mitochondrial AB <20.0 Units (0.0-20.0); Anti-Scleroderma-70 AB <0.2 AI (0.0-0.9); Anti-dsDNA Ab <1 IU/mL (0-9); RNP Ab <0.2 AI (0.0-0.9); SJOGREN'S Anti-SS-A test 1.7 AI (0.0-0.9); SJOGREN'S Anti-SS-B test < 0.2 AI (0.0-0.9); Smith Ab <0.2 AI (0.0-0.9)
== END | disposition home or self-care (01) ==
LOC: LAB 15:47
PROVIDERS: PCP Internal Medicine; Referring Provider Student in an Organized Health Care Education/Training Program; Visit Provider Student in an Organized Health Care Education/Training Program
DX: K44.9 Diaphragmatic hernia without obstruction or gangrene (principal)
CPT/HCPCS: 36415; 83516; 86225; 86235